=== PATIENT | female | born 1955 | race Caucasian/White ===

== ENCOUNTER 2017-12-18 01:58 | Day surgery (SDC) | payer OTHER, BC, SELFPAY ==
[~2017-12-18 01:58] MED LIST: ACETAMINOPHEN TAB 650MG DOSE (2X325MG) PO; MORPHINE 4 MG/ML 1ML VIAL/SYRINGE (J2270) IV; ONDANSETRON 4MG/2ML VIAL (J2405) IV
[2017-12-18] MEDS: LR 1,000 ML IV ×4 (02:59→12:45)
[2017-12-18] MEDS: AMPICILLIN SOD/SULBACTAM SOD 3 GM in D5W MINI-BAG PLUS 100 ML IV ×4 (02:59→21:58)
[2017-12-18] MEDS: metroNIDAZOLE 500 MG in APPROPRIATE DILUENT 1 EA IV ×3 (04:42→20:23)
[2017-12-18] MEDS: NORCO, ANEXSIA 5/325MG TABLET (HYDROcodone/ACETAMINOPHEN) PO ×2 (06:48→20:23)
[2017-12-18] MEDS ORDERED: BUPIVACAINE HCL 0.25% 30 ML VIAL As Ordered (07:57)
[2017-12-18] MEDS ORDERED: LIDOCAINE 1% SDV INJ 30 ML VIAL As Ordered (07:57)
[2017-12-18] MEDS ORDERED: UNASYN 1.5 GM VIAL As Ordered (08:06)
[2017-12-18] MEDS: SYMBICORT 160/4.5MCG INHALER 6GM INH ×2 (09:00→21:27)
[2017-12-18] MEDS ORDERED: PROPOFOL 200 MG/20 ML VIAL As Ordered (09:19)
[2017-12-18] MEDS ORDERED: KETOROLAC 60 MG/2 ML VIAL (J1885) As Ordered (09:19)
[2017-12-18] MEDS ORDERED: NEOSTIGMINE 10 MG/10 ML VIAL (J2710) As Ordered (09:19)
[2017-12-18] MEDS ORDERED: ONDANSETRON 4MG/2ML VIAL (J2405) As Ordered (09:19)
[2017-12-18] MEDS ORDERED: ROCURONIUM BROMIDE 50 MG/5 ML VIAL As Ordered (09:19)
[2017-12-18] MEDS ORDERED: LIDOCAINE 2% INJ 100 MG/5 ML SDV (FOR ANES.) As Ordered (09:19)
[2017-12-18] MEDS ORDERED: LABETALOL HCL 100 MG/20 ML VIAL As Ordered (09:19)
[2017-12-18] MEDS ORDERED: GLYCOPYRROLATE INJ 0.2 MG/ML 2 ML VIAL As Ordered (09:19)
[2017-12-18] MEDS ORDERED: ePHEDrine SULFATE 25 MG/5 ML(5MG/ML) SYRINGE As Ordered (09:19)
[2017-12-18] MEDS ORDERED: fentaNYL 250 MCG/5 ML INJECTION (J3010) As Ordered (09:19)
[2017-12-18] MEDS ORDERED: dexameTHASONE 4 MG/ML 1ML VIAL (J1100) As Ordered (09:19)
[2017-12-18] MEDS ORDERED: MIDAZOLAM INJ 2 MG/2 ML VIAL (J2250) As Ordered (09:19)
[2017-12-18] MEDS ORDERED: ONDANSETRON 4MG/2ML VIAL (J2405) IV (10:15)
[2017-12-18] MEDS ORDERED: PERCOCET 5MG/325MG TAB PO (10:15)
[2017-12-18] MEDS ORDERED: fentaNYL 100 MCG/2 ML INJECTION (J3010) IV (10:15)
[2017-12-18] MEDS ORDERED: METOCLOPRAMIDE INJ 10MG/2ML VIAL (J2765) IV (10:15)
[2017-12-18] MEDS: ATENOLOL 50 MG TAB PO (14:38)
[2017-12-18] MEDS: KETOROLAC 30 MG/ML VIAL (J1885) IV (15:44)
[2017-12-18] MEDS: ATORVASTATIN 20 MG TAB PO (21:58)
[2017-12-18] MEDS: SERTRALINE HCL 50 MG TAB PO (21:58)
[2017-12-18] MEDS ORDERED: SLF 3 ML SYR IV (23:45)
[2017-12-19] MEDS: AMPICILLIN SOD/SULBACTAM SOD 3 GM in D5W MINI-BAG PLUS 100 ML IV ×2 (03:32→09:06)
[2017-12-19] MEDS: SLF 3 ML SYR IV (03:33)
[2017-12-19] MEDS: metroNIDAZOLE 500 MG in APPROPRIATE DILUENT 1 EA IV (04:22)
[2017-12-19] MEDS: NORCO, ANEXSIA 5/325MG TABLET (HYDROcodone/ACETAMINOPHEN) PO ×2 (04:39→09:06)
[2017-12-19 07:07] LABS: BASO % 0.1 % (0.0-1.0); HEMATOCRIT 31.2 % (36.0-47.0); HEMOGLOBIN 10.4 g/dl (12.0-15.5); IMMATURE GRANULOCYTE % 0.8 % (0-3.0); LYMPH # 0.9 10^3/uL (1.5-4.5); LYMPH % 7.5 % (24.0-44.0); MEAN CORPUSCULAR HEMOGLOBIN 30.7 pg (27.0-33.0); MEAN CORPUSCULAR HGB CONC 33.3 g/dl (32.0-36.5); MONO # 0.6 10^3/uL (0.0-0.8); MONO % 5.6 % (0.0-5.0); NEUTROPHILS # 9.8 10^3/uL (1.8-7.7); PLATELET COUNT, AUTOMATED 206 10^3/uL (150-450); RED BLOOD COUNT 3.39 10^6/uL (4.00-5.40); WHITE BLOOD COUNT 11.4 10^3/uL (4.0-10.0)
[2017-12-19 07:33] LABS: ANION GAP 5 MEQ/L (8-16); BLOOD UREA NITROGEN 11 MG/DL (7-18); CALCIUM LEVEL 8.1 MG/DL (8.8-10.2); CARBON DIOXIDE LEVEL 28 MEQ/L (21-32); CHLORIDE LEVEL 110 MEQ/L (98-107); CREATININE FOR GFR 0.88 MG/DL (0.55-1.30); GLOMERULAR FILTRATION RATE > 60.0 (>45); GLUCOSE, FASTING 132 MG/DL (70-100); POTASSIUM SERUM 3.8 MEQ/L (3.5-5.1); SODIUM LEVEL 143 MEQ/L (136-145)
[2017-12-19] MEDS: SYMBICORT 160/4.5MCG INHALER 6GM INH (08:52)
[2017-12-19] MEDS: ATENOLOL 50 MG TAB PO (09:06)
== END 2017-12-19 12:05 | disposition home or self-care (01) ==
LOC: M SDC 12-19 12:05 → M PED 01:58
DX: K35.89 Other acute appendicitis (principal); D72.829 Elevated white blood cell count, unspecified; I10 Essential (primary) hypertension; J45.909 Unspecified asthma, uncomplicated; F41.9 Anxiety disorder, unspecified; Z79.899 Other long term (current) drug therapy
CPT/HCPCS: 44970

== ENCOUNTER → 2023-04-28 | Outpatient (CLI) | payer MEDICARE, OTHER ==
[~2023-04-28] MED LIST changes: -ACETAMINOPHEN TAB 650MG DOSE (2X325MG) PO; +ATEN50TA2 PO; +ATOR1TAB21 PO; +CETI5TAB2 PO; +HYDR-3715 PO; +MAGN250T7 PO; +MOBI4TAB PO; -MORPHINE 4 MG/ML 1ML VIAL/SYRINGE (J2270) IV; -ONDANSETRON 4MG/2ML VIAL (J2405) IV; +SERT-141 PO; +SYMB16INH INH; +TIZA2TA PO; +VITA100066 PO
== END ==
LOC: M CARPUL 09:12
PROVIDERS: ATTEND Nurse Practitioner Adult Health
DX: R06.02 Shortness of breath (principal)